=== PATIENT | male | born 1950 | race Caucasian/White ===

== ENCOUNTER → 2022-03-26 | Outpatient (CLI) | payer MEDICARE ==
[~2022-03-26] MED LIST: CATHETER FLUSH 10 ML SYR IV PRN; HOLD METFORMIN - RECEIVED CONTRAST 20 ML VIAL IV SCH; IOHEXOL 350 MG/ML 100 ML (OMNIPAQUE 350) VIAL IV ONE; IOHEXOL 350 MG/ML 150 ML (OMNIPAQUE 350) VIAL IV ONE; NS 100 ML (IVPB) BAG IV ONE
--- NOTE | 2022-03-26 12:40 | Diagnostic Imaging Report ---
EXAMINATION: CT abdomen and pelvis with intravenous contrast. TECHNIQUE: Multiple contiguous axial images were obtained through the abdomen and pelvis after the uneventful administration of intravenous contrast. All CT scans use one or more of the following dose optimizing techniques: automated exposure control, MA and/or KvP adjustment based on patient size and exam type or iterative reconstruction. HISTORY: Abdominal pain. Constipation for one week. COMPARISON: None available. FINDINGS: The heart is unremarkable. Dependent opacities are seen in the left lung base. Simple cortical cyst is seen in the medial aspect of the left kidney. No solid renal mass. Nonobstructing calculi are seen in the kidneys bilaterally measuring up to 0.4 cm. No obstructing calculi or hydronephrosis. The urinary bladder is nondistended. No bladder calculi are present. The prostate is enlarged measuring 5.7 cm in transverse diameter. The liver, spleen, pancreas, adrenal glands, and kidneys have a normal appearance. The gallbladder is surgically absent. There is no pathologically enlarged mesenteric or retroperitoneal adenopathy. The bowel loops are nondilated. The appendix is normal in caliber. The appendix is seen entering a fat-containing right inguinal hernia. There is bowel wall thickening in the hepatic flexure of the colon. Scattered diverticula are seen in the sigmoid colon without evidence of acute diverticulitis. Nonspecific mesenteric inflammation is seen in the right hemiabdomen. There is no free fluid or free air. No acute osseous abnormalities. There is no free air, loculated collection, or adenopathy in the pelvis. IMPRESSION: 1. Bowel wall thickening in the hepatic flexure of the colon and rectosigmoid colon. Findings can be seen with proctitis/colitis. Underlying malignancy is not excluded, particularly in the hepatic flexure. Recommend correlation with colonoscopy findings. No evidence of bowel obstruction. No free fluid or free air. 2. The appendix is noted to be within a fat-containing right inguinal hernia, consistent with Amyand hernia. No evidence of acute appendicitis. 3. Bilateral nonobstructing renal calculi. No evidence of hydronephrosis or obstructing calculi. 4. Prostatomegaly. 5. Scattered diverticula in the sigmoid colon without evidence of acute diverticulitis. Dictated by: Dictated on workstation # [id number]
== END ==
LOC: RAD FS 11:27
PROVIDERS: ATTEND Nurse Practitioner Family
DX: N20.0 Calculus of kidney (principal); K57.30 Diverticulosis of large intestine without perforation or abscess without bleeding; K40.90 Unilateral inguinal hernia, without obstruction or gangrene, not specified as recurrent; N40.0 Benign prostatic hyperplasia without lower urinary tract symptoms
CPT/HCPCS: 74177; Q9967